=== PATIENT | female | born 1960 | race Caucasian/White ===

== ENCOUNTER 2018-06-15 11:09 | Outpatient (CLI) | payer MEDICARE | END 2018-06-15 11:10 | disposition home or self-care (01) | PROVIDERS: ATTEND Nurse Practitioner Family | DX: R13.12 Dysphagia, oropharyngeal phase (principal); R49.0 Dysphonia | CPT/HCPCS: 74230 ==

== ENCOUNTER 2018-12-21 07:34 | Outpatient (CLI) | payer MEDICARE ==
--- NOTE | 2018-12-21 08:12 | ULT ---
US Gallbladder RUQ: 12/21/2018 12:00 AM CLINICAL HISTORY: Right upper quadrant abdominal pain. STUDY: Limited right upper quadrant ultrasound of abdomen. COMPARISON: None. FINDINGS: Liver: Size: Normal. Echogenicity: Normal. Contour: Smooth. Mass: None. Bile ducts: No intrahepatic or extrahepatic biliary dilatation. Common bile duct measures 9 mm. Gallbladder: There is an echogenic region on the latter images in the gallbladder fundus. This was no t seen on the initial images of the gallbladder. This appears to demonstrate dirty shadowing which is often renewals representative of air. This could represent a stone in the gallbladder fundus but could also represent bowel immediately adjacent to the gallbladder fundus. Pancreas: Head and body appear normal; tail obscured by bowel gas. Right kidney: No pelvicalyceal dilatation. Right kidney measuring 10.8 cm in length. IMPRESSION: 1. Echogenic region in the gallbladder fundus. This could represent bowel adjacent to the gallbladder or a shadowing stone in the fundus of the gallbladder. 2. Enlargement of the common bile duct
== END 2018-12-21 07:35 | disposition home or self-care (01) ==
LOC: BICULT 07:34
PROVIDERS: ATTEND Physician Assistant Medical
DX: R10.11 Right upper quadrant pain (principal); R14.3 Flatulence; R14.1 Gas pain; R14.2 Eructation; R19.4 Change in bowel habit
CPT/HCPCS: 36415; 76705; 80053; 82150; 83690; 84439; 84443; 85025

== ENCOUNTER 2018-12-29 08:43 | Day surgery (SDC) | payer MEDICARE ==
[2018-12-27 15:46] VITALS: BMI 35.6
[2018-12-29] MEDS ORDERED: Fentanyl 100 MCG/2 ML VIAL ONE ×2 (09:10→10:53)
[2018-12-29] MEDS ORDERED: HYDROmorphone 2 MG/ML VIAL ONE (09:10)
[2018-12-29] MEDS ORDERED: Sodium Chloride 0.9% 100 ML ONE (09:16)
[2018-12-29] MEDS ORDERED: cefOXitin 2 GM VIAL ONE (09:16)
[2018-12-29] MEDS ORDERED: Midazolam HCl 2 mg/2 ml Vial ONE (09:21)
[2018-12-29] MEDS ORDERED: Bupivacaine/Epinephrine 0.25% 30 ML VIAL ONE (09:34)
--- NOTE | 2018-12-29 11:12 | OP ---
DATE OF PROCEDURE: 12/29/2018 PREOPERATIVE DIAGNOSIS: Symptomatic cholelithiasis. PROCEDURE PERFORMED: Laparoscopic cholecystectomy. INDICATIONS: A 58-year-old female, who has been having right upper quadrant pain radiating to back, associated with nausea. Ultrasound showed cholelithiasis. FINDINGS: Large stone, small duct. DESCRIPTION OF PROCEDURE: After informed consent was obtained, the patient was taken to the operating room, given general endotracheal anesthesia, placed in the supine position. The abdomen was prepped and draped in usual fashion. Local anesthesia was infiltrated subcutaneously and deep. Subumbilical incision was performed. Subcu divided sharply. The fascia grasped and 2 stay sutures of 0 Vicryl placed in each side of midline. Midline incised. Digital palpation revealed no local adhesions. A blunt 12 mm trocar inserted. Pneumoperitoneum was created to a pressure of 15 mmHg. Zero-degree laparoscope inserted under direct vision. Three 5 mm ports were placed subcostally. Gallbladder was grasped and advanced superiorly. The peritoneum was lysed distally to dissect out the cystic duct artery in critical view. The duct was triply ligated with hemoclips and divided. The artery triply ligated with hemoclips and divided. The gallbladder removed from its fossa utilizing electrocautery, removed from the abdomen through the umbilical port. Hemostasis assured. Trocars and retractors removed. The fascia closed with interrupted 0 Vicryl suture. The skin closed with interrupted 4-0 Rapide. Dermabond applied. The patient tolerated the procedure well, transferred to Recovery in good condition. Sponge and needle count verified correct x2. Job ID: [id number]
[2018-12-29] MEDS ORDERED: HYDROcodone/Acetaminophen 5/325 mg Tablet ONE (12:31)
== END 2018-12-29 13:50 | disposition home or self-care (01) ==
LOC: SDC 08:43
PROVIDERS: ATTEND Surgery
PROC: 0FT44ZZ Resection of Gallbladder, Percutaneous Endoscopic Approach (ICD-10-PCS; principal; 2018-12-29)
DX: K80.10 Calculus of gallbladder with chronic cholecystitis without obstruction (principal); G43.909 Migraine, unspecified, not intractable, without status migrainosus; Z79.899 Other long term (current) drug therapy; Z85.528 Personal history of other malignant neoplasm of kidney; Z90.5 Acquired absence of kidney
CPT/HCPCS: 88304; J0694; J1170; J2250; J3010; J3490